=== PATIENT | male | born 1980 | race Caucasian/White ===

== ENCOUNTER 2017-08-30 16:17 | Emergency (ER) | payer OTHER ==
[~2017-08-30] VITALS: Ht 185.4 cm; Wt 77.1 kg
[2017-08-30] MEDS ORDERED: Cyclobenzaprine5 MG PO (17:13)
== END 2017-08-30 17:19 | disposition home or self-care (01) ==
LOC: ER 16:17
DX: M25.512 Pain in left shoulder (principal); R07.89 Other chest pain; Z87.891 Personal history of nicotine dependence
CPT/HCPCS: 73030; 99283